=== PATIENT | female | born 1985 | race Caucasian/White ===

== ENCOUNTER 2020-04-07 09:08 | Outpatient (CLI) | payer SELFPAY ==
[2020-04-09 21:45] LABS: Patient Race White; SARS-CoV-2 RNA Undetected (Undetected); SARS-CoV-2 Specimen Source Nasal
== END 2020-04-07 09:28 ==
PROVIDERS: PCP Nurse Practitioner Family; Visit Provider Nurse Practitioner Family
DX: Z20.828 Contact with and (suspected) exposure to other viral communicable diseases (principal)
CPT/HCPCS: U0003

== ENCOUNTER 2022-06-09 14:22 | Outpatient (REF) | payer SELFPAY ==
--- NOTE | 2022-06-09 13:00 | PAPFT_PTH ---
PATIENT: Bri Ellis LOC: [facility] U#:[id number] AGE/SX: 37/F ROOM: RE06/09/[address]: MAGDALENO Rivera : 1985 BED: DIS: 06/09/2022 SPEC #: [id number] RECD: 06/10/22 13:07 STATUS: HERNANDO REKrista #: [id number] HERMANN: 06/09/22 13:[address]: Marisol Barker DEPT: [facility] Cytology RECD BY: Tita Roth Tissues: 1 - CX/ENDOCX FOR PAP SMEARS Procedures: PAP THIN PREP/UVM Screening HPV DNA PROBE Comments: [id number] (HPV 16 & 18/45) (CHLAMYDIA/GC)
[2022-06-11 12:43] LABS: Chlamydia Result Negative (Negative); GC Result Negative (Negative)
== END 2022-06-09 14:23 | disposition home or self-care (01) ==
LOC: LBN 14:22
PROVIDERS: PCP Nurse Practitioner Family; Visit Provider Nurse Practitioner Family
DX: Z12.4 Encounter for screening for malignant neoplasm of cervix (principal); Z11.3 Encounter for screening for infections with a predominantly sexual mode of transmission; Z11.51 Encounter for screening for human papillomavirus (HPV); R87.810 Cervical high risk human papillomavirus (HPV) DNA test positive
CPT/HCPCS: 87491; 87591; 88142; 87624

== ENCOUNTER 2022-06-25 01:27 | Outpatient (CLI) | payer SELFPAY ==
[2022-06-25 13:46] LABS: BUN 14 mg/dL (7-18); CREATININE 0.8 mg/dL (0.55-1.02); Calcium 9.7 mg/dL (8.5-10.1); Calculated LDL 171 mg/dL (<100); Chloride 101 mmol/L (98-107); Cholesterol 248 mg/dL (<200); Estimated GFR 98.48 (mL/min/1.73m2); Glucose 104 mg/dL (74-106); HDL Cholesterol 69 mg/dL (40-60); Potassium 3.4 mmol/L (3.5-5.1); Sodium 136 mmol/L (136-145); Triglyceride 44 mg/dL (<150)
[2022-06-28 09:34] LABS: TSH (W/Ref FT4) 2.94 uIU/mL (0.36-3.74)
== END 2022-06-25 01:28 | disposition home or self-care (01) ==
LOC: LBO 01:27
PROVIDERS: PCP Nurse Practitioner Family
DX: Z00.00 Encounter for general adult medical examination without abnormal findings (principal); E78.5 Hyperlipidemia, unspecified; F34.89 Other specified persistent mood disorders; F17.210 Nicotine dependence, cigarettes, uncomplicated
CPT/HCPCS: 36415; 80048; 80061; 84443

== ENCOUNTER 2023-08-05 12:50 | Outpatient (REF) | payer SELFPAY ==
--- NOTE | 2023-08-05 11:00 | PAPFT_PTH ---
PATIENT: Bri Ellis LOC: [facility] U#:[id number] AGE/SX: 38/F ROOM: RE08/05/[address]: MAGDALENO Rivera : 1985 BED: DIS: 08/05/2023 SPEC #: [id number] RECD: 08/08/23 13:02 STATUS: HERNANDO REKrista #: [id number] HERMANN: 08/05/23 11:[address]: Marisol Barker DEPT: [facility] Cytology RECD BY: Tita Roth Tissues: 1 - CX/ENDOCX FOR PAP SMEARS Procedures: PAP THIN PREP/UVM Screening HPV DNA PROBE Comments: [id number] (HPV 16 & 18/45)
== END 2023-08-05 12:51 | disposition home or self-care (01) ==
LOC: LBN 12:50
PROVIDERS: PCP Nurse Practitioner Family; Referring Provider Nurse Practitioner Family; Visit Provider Nurse Practitioner Family
DX: Z01.419 Encounter for gynecological examination (general) (routine) without abnormal findings (principal)
CPT/HCPCS: 88142; 87624

== ENCOUNTER 2023-09-23 13:42 | Outpatient (REF) | payer SELFPAY ==
--- NOTE | 2023-09-23 13:25 | CER_PTH ---
PATIENT: Bri Ellis LOC: [facility] U#:[id number] AGE/SX: 38/F ROOM: RE09/23/[address]: Cheri Hampton MD : 1985 BED: DIS: 09/23/2023 SPEC #: [id number] RECD: 09/23/23 17:27 STATUS: HERNANDO REKrista #: [id number] HERMANN: 09/23/23 13:[address]: Cheri Hampton DEPT: Surgical [facility]imen RECD BY: Tita Roth ENTERED: 09/23/23 17:28 SP TYPE: CER ARISTIDES DR: MAGDALENO Rivera Tissues: 1 - CERVICAL BIOPSY Procedures: GROSS AND MICRO LEVEL 4 Comments: [id number]
== END 2023-09-23 13:43 | disposition home or self-care (01) ==
LOC: LBN 13:42
PROVIDERS: PCP Nurse Practitioner Family; Visit Provider Obstetrics & Gynecology
DX: Z12.4 Encounter for screening for malignant neoplasm of cervix (principal); R87.611 Atypical squamous cells cannot exclude high grade squamous intraepithelial lesion on cytologic smear of cervix (ASC-H)
CPT/HCPCS: 88305

== ENCOUNTER 2023-12-15 07:35 | Emergency (ER) | payer SELFPAY ==
[2023-12-15 07:39] VITALS: BP 158/89; PULSE 72; RESP 14; TEMP 36.5; O2SAT 99
[2023-12-15 07:48] VITALS: BP 158/89; PULSE 72; RESP 14; TEMP 36.5; O2SAT 99
--- NOTE | 2023-12-15 08:05 | W.ED.GENAD ---
Discharge Plan Disposition Patient Disposition: Home Condition: Stable Discharge Details Chief Complaint: Abd Prob Clinical Impression: Abdominal pain, Ovarian cyst Primary Care Provider: Marisol Barker ED Provider: Daniel Raymundo Home Meds and New Rx's Prescriptions: No Action No Known Home Meds Discharge Instructions Additional Instructions: Your blood work and urine did not show any concerning findings. Your CAT scan did show you have ovarian cysts on both of your ovaries. Follow-up with your primary care provider woman[facility], they can be reached at [phone] If you feel more ill or have severe worsening pain or pain not controlled with ibuprofen and Tylenol return to the emergency department for reevaluation HPI General Mode of arrival: ambulatory. Date/Time Provider Initiated Documentation: 12/15/23 07:40. Limitations to Documentation: no limitations. Information obtained by: patient. History of Present Illness 38 year old F presents to the emergency department with the chief complaint of abdominal pain, described as moderate, Quality is described as stabbing, and is localized to the abdomen. Patient reports no radiation. Patient started experiencing this hour(s) (10) and it has been intermittent. No relieving factors improve symptom(s), No exacerbating factors reported . Patient notes denies chest pain and shortness of breath. Patient did receive the following treatments prior to arrival, none Related Data Home Medications ?Medication ?Instructions ?Recorded ?Confirmed Unknown [No Known Home Meds] 08/05/23 12/15/23 Allergies Allergy/AdvReac Type Severity Reaction Status Date / Time No Known Allergies Allergy Unverified 12/15/23 07:46 General Stated Complaint: Abd Prob DEYSI: 3 Review of Systems All systems reviewed & are unremarkable except as noted in HPI and below Constitutional Constitutional: Denies chills, Denies fever(s) and Denies weakness Cardiovascular Cardiovascular: Denies chest pain and Denies dyspnea Respiratory Respiratory: Denies cough and Denies dyspnea Gastrointestinal Gastrointestinal: Reports abdominal pain and Denies vomiting Integumentary/Breasts Skin/Breast: Denies rash Neurologic Neurologic: Denies weakness Exam Const General: no acute distress Orientation: alert HENMT Head: normal to inspection Ears: external ears normal General nose exam: external nose normal Mouth: moist mucous membranes Eyes General: appearance normal, both eyes and all related structures Neck Neck: normal visual inspection Resp Effort & Inspection: normal respiratory effort and able to speak in complete sentences Cardio Rate: regular rate GI Palpation: soft and tender Skin General skin exam: no rashes or lesions noted Neuro General: patient alert and patient oriented x3 Extrem General: normal to inspection Psych Mental Status: mental status grossly normal Course Vital Signs Vital signs: Vital Signs Temperature 36.5 C 12/15/23 07:39 Pulse 72 12/15/23 07:39 Respiratory Rate 14 12/15/23 07:39 Blood Pressure 158/89 H 12/15/23 07:39 Pulse Oximetry 99 12/15/23 07:39 Temperature 36.5 C 12/15/23 07:48 Temperature Source Temporal Artery Scan 12/15/23 07:48 Pulse 72 12/15/23 07:48 Respiratory Rate 14 12/15/23 07:48 Blood Pressure 158/89 H 12/15/23 07:48 Blood Pressure Position Sitting 12/15/23 07:48 Pulse Oximetry 99 12/15/23 07:48 Oxygen Delivery Method Room Air 12/15/23 07:48 Oxygen Flow Rate 0 12/15/23 07:48 Pain Level 5 12/15/23 07:48 Lab/Test Results Lab/Test Results: POC Urine Test Start: 12/15/23 07:57 Freq: Status: Complete Protocol: Document 12/15/23 07:59 CT (Rec: 12/15/23 07:59 CT [id number]) Test(Urine)-POC POC- Test(urine) Negative POC- Test(urine) Negative Medical Decision Making 38-year-old female with a history of ADHD, comes in with lower abdominal sharp and cramping pain since 9:00 last night. She says all day yesterday she felt fine. The pain is intermittent, she cannot think of anything that makes it better or worse. She is alert and oriented x 4 on arrival speaking clearly in no distress. She is localizing the pain to the lower abdomen has tenderness in the right and a little bit on the left, no guarding or rebound, denies any vaginal bleeding. Given location of pain we will proceed with CBC, CMP, lipase and CT abdomen pelvis to evaluate for appendicitis and less likely diverticulitis. Labs unremarkable, CT shows bilateral ovarian cyst. Patient is now pain-free and has no abdominal tenderness. Discussed obtaining ultrasound but given she is pain-free she does not want stay for this. Given sharp pain has resolved I doubt ovarian torsion currently. Will have her follow-up with her PCP or [facility] and return precautions given. Differential Diagnosis Differential Diagnosis: Appendicitis, diverticulitis,. Cyst Imaging Data Radiologic Study: Attestation: I personally reviewed and interpreted this imaging study as follows: Imaging: CT Scan Radiologist's impression: PELVIS: Bladder: Symmetric distention, no gross wall thickening. Reproductive Organs: There are bilateral ovarian cysts. The largest on the right measures 4 x 1.8 cm. (Series 6, image 574. The largest on the left measures 3.2 x 1.9 cm (series 6, image 595). Lymph Nodes: Within normal limits. Bones: Within normal limits for the patient's age. Lab Data Lab results reviewed: Yes I reviewed the patient's lab results. Quality:SDOH Health Related Social Needs: Health related social needs inadequate housing, personal safety Health related social needs details Aware of community resources PFS All Active Problems (Updated 12/15/23 @ 09:42 by Daniel Raymundo MD) Ovarian cyst (Acute) Abdominal pain (Acute) ADHD (attention deficit hyperactivity disorder), combined type (Chronic) Hyperlipidemia (Chronic) Cervical high risk HPV (human papillomavirus) test positive (Chronic) Cigarette smoker (Chronic) Mood disorder (Chronic) Family History (Updated 08/18/23 @ 13:55 by Dorota Griffin) Mother Alcohol use disorder Depression Father Alcohol use disorder Depression Sister Depression Anxiety Sister No problems noted. Brother No problems noted. Maternal Grandfather Alcohol use disorder Maternal Grandmother Diabetes Dementia Adopted Paternal Grandfather Myocardial infarction Heart disease Hypertension Paternal Grandmother Breast cancer 90s Depression Anxiety Social History Smoking/Tobacco Use Status: Current every day Tobacco Type: cigarettes Years smoked: 16 Tobacco: How many years used: 25 Second Hand Exposure: Yes Smoking risk assessment performed?: Yes Alcohol Intake: former Drug use: Daily Substance use type: marijuana Caregiver/Support person: No Household members: none Housing: apartment Communication Needs: None Pets and animals: Yes Pets and animals: dog(s) Sexually active: Yes Do you think of yourself as: bisexual Current gender identity: female What is your relationship status?: never How often do you talk on the phone with friends or family?: never How often do you get together with friends or relatives?: once per week How often do you attend caodaism or evangelical services?: decline to answer Do you belong to any clubs or organized social groups?: no Panel score (0-1 are the most socially isolated patients): 0 What type of physical activity do you participate in: none Frequency: does not exercise Mady/Caodaism: No preference Special mady needs: No Seatbelt use: always Helmet use: Yes Helmet use: always Drive intox or ride w/intox truck driver's 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
[2023-12-15 08:10] LABS: Abs Immature Grans 0.02 10^3/uL (0.0-0.06); Absolute Basophil Count 0.11 10^3/uL (0.0-0.2); Absolute Eosinophil Count 0.64 10^3/uL (0.0-0.7); Absolute Lymphocyte Count 1.87 10^3/uL (1.2-3.4); Absolute Monocyte Count 0.47 10^3/uL (0.1-0.8); Absolute Neutrophil Count 4.24 10^3/uL (1.2-6.7); Basophils % 1.5 %; Eosinophils % 8.7 %; HCT 43.3 % (36.0-46.0); Immature Grans % 0.3 %; Lymphocytes % 25.4 %; MCH 31.5 pg (27.0-33.0); MCHC 34.6 % (32.0-36.0); MCV 91 fL (80-95); MPV 8.9 fL (8.0-11.0); Monocytes % 6.4 %; Neutrophils % 57.7 %; Platelet Count 300 10^3/uL (130-400); RBC 4.76 10^6/uL (3.93-5.22); RDW 13.2 % (11.7-14.6); RDW-SD 44.6 fL; WBC 7.35 10^3/uL (4.4-10.8)
[2023-12-15 08:12] LABS: Bilirubin Negative (Negative); Blood Negative (Negative); Clarity Clear (Clear); Glucose Negative (Negative); Ketones Negative (Negative); Leukocyte Esterase Negative (Negative); Nitrite Negative (Negative); Urobilinogen 0.2 mg/dL (Up to 0.2)
[2023-12-15] MEDS: Normal Saline 1,000 ML 1000 ML IV (08:12)
[2023-12-15] MEDS: Ketorolac 15 MG/ML VIAL IVP (08:12)
[2023-12-15 08:28] LABS: ALT 37 U/L (14-59); AST 19 U/L (15-37); Albumin 4.2 g/dL (3.4-5.0); Alkaline Phosphatase 43 U/L (46-116); Anion Gap 7.3 mmol/L (3-11); BUN 11 mg/dL (7-18); Bilirubin, Direct 0.2 mg/dL (0.0-0.2); Bilirubin, Total 1.19 mg/dL (0.2-1.0); CO2 28.7 mmol/L (21.0-32.0); CREATININE 0.8 mg/dL (0.55-1.02); Calcium 9.3 mg/dL (8.5-10.1); Chloride 105 mmol/L (98-107); Estimated GFR 97.87 (mL/min/1.73m2); Glucose 105 mg/dL (74-106); Lipase 29 U/L (16-77); Magnesium 1.9 mg/dL (1.8-2.4); Potassium 4.1 mmol/L (3.5-5.1); Sodium 141 mmol/L (136-145); Total Protein 7.2 g/dL (6.4-8.2)
[2023-12-15] MEDS: Normal Saline - Diluent 50 ML VIAL IJ (08:51)
[2023-12-15] MEDS: Omnipaque 350 MG/ML 100 ML BTL IJ (08:54)
--- NOTE | 2023-12-15 09:05 | DI.CT_ITS ---
Exam(s) CT ABDOMEN PELVIS W EXAM: CT ABDOMEN PELVIS W CLINICAL HISTORY: right lower abdominal pain TECHNIQUE: Imaging Protocol: Axial computed tomography images with coronal and sagittal reformatted images were created and reviewed. CONTRAST MATERIAL: Intravenous: Omnipaque 350 Contrast volume:100 mL Oral: No COMPARISON: CT ABD PELVIS WITH CONTRAST from 09/27/2017 FINDINGS: ABDOMEN: Lung Bases: Normal where visualized. Liver: Normal density. No measurable mass. Portal, Superior Mesenteric, and Splenic Veins: Unremarkable. Gallbladder and Biliary Tract: No radiodense calculus or dilation. Pancreas: Normal density, no abnormal calcifications or inflammatory process. Spleen: Normal. Adrenals: No masses seen. Kidneys: Normal size, contour and axis. No radiodense stones or obstructive uropathy. No masses seen. Note is made of a retroaortic left renal vein. Abdominal Aorta: Abdominal portion non-dilated. Bowel: No obstruction or bowel wall thickening. The stomach is incompletely distended limiting evalua tion. A normal appendix is visualized. Peritoneal Cavity: There is a trace amount of free fluid in the pelvis. This may be physiologic. No free air. Lymph Nodes: Within normal limits. Bones: Within normal limits for the patient's age. Soft Tissues: Unremarkable. PELVIS: Bladder: Symmetric distention, no gross wall thickening. Reproductive Organs: There are bilateral ovarian cysts. The largest on the right measures 4 x 1.8 cm . (Series 6, image 574. The largest on the left measures 3.2 x 1.9 cm (series 6, image 595). Lymph Nodes: Within normal limits. Bones: Within normal limits for the patient's age. IMPRESSION: 1. Normal appendix. 2. Bilateral ovarian cysts. The right ovary cyst measures 4 x 1.8 cm. The left ovarian cyst measure s 3.2 x 1.9 cm. There is a trace amount of free fluid in the pelvis which is likely physiologic. 3. No evidence of obstructive uropathy. RADIATION DOSE DELIVERED: Total DLP DATA REPOSITORY: All CT scans at this facility are submitted to the National Radiology Data Registry (NRDR) Dose Index Registry (DIR) with the [employer] (ACR). RADIATION OPTIMIZATION: All CT scans at this facility use at least one of these dose optimization te chniques: automated exposure control; mA and/or kV adjustment per patient size (includes targeted exa ms where dose is matched to clinical indication); or iterative reconstruction.
[2023-12-15 09:44] VITALS: BP 130/84; PULSE 57; RESP 14; TEMP 36.7; O2SAT 100
== END 2023-12-15 09:24 | disposition home or self-care (01) ==
LOC: ER 10:18
PROVIDERS: Emergency Provider Emergency Medicine; PCP Nurse Practitioner Family
DX: R10.9 Unspecified abdominal pain (principal); N83.292 Other ovarian cyst, left side; N83.291 Other ovarian cyst, right side; I10 Essential (primary) hypertension; F17.210 Nicotine dependence, cigarettes, uncomplicated
CPT/HCPCS: 80053; 81025; 83690; 96361; 96374; 99285; 74177; 81003; 82248; 83735; 85025; 99284; J1885; J3490

== ENCOUNTER 2024-08-31 16:26 | Outpatient (REF) | payer SELFPAY ==
--- NOTE | 2024-08-31 13:00 | PAPFT_PTH ---
PATIENT: Bri Ellis LOC: [facility] U#:[id number] AGE/SX: 39/F ROOM: RE08/31/[address]: MAGDALENO Rivera : 1985 BED: DIS: 08/31/2024 SPEC #: [id number] RECD: 09/03/24 13:24 STATUS: HERNANDO REKrista #: [id number] HERMANN: 08/31/24 13:[address]: Marisol Barker DEPT: [facility] Cytology RECD BY: Tita Roth Tissues: 1 - CX/ENDOCX FOR PAP SMEARS Procedures: PAP THIN PREP/UVM Screening HPV DNA PROBE Comments: [id number] (HPV 16 & 18/45) (CHLAMYDIA/GC)
[2024-09-04 12:35] LABS: Chlamydia Result Negative (Negative); GC Result Negative (Negative)
== END 2024-08-31 16:27 | disposition home or self-care (01) ==
LOC: LBN 16:26
PROVIDERS: PCP Nurse Practitioner Family; Visit Provider Nurse Practitioner Family
DX: Z11.51 Encounter for screening for human papillomavirus (HPV) (principal)
CPT/HCPCS: 87491; 87591; 88142; 87624